=== PATIENT | male | born 1935 | race Caucasian/White ===

== ENCOUNTER 2016-10-16 15:58 | Inpatient (IN) | payer MEDICARE, OTHER ==
[~2016-10-16] VITALS: Ht 170.2 cm; Wt 91.6 kg
[~2016-10-16 15:58] MED LIST: AZILECT1 MG PO; COLESTID 1GM1 G PO; CORDARONE200 MG/TAB PO; FERROUSAL325 MG PO; FLOMAX 0.40.4 MG/CAP PO; GLUCOPHAGE1000 MG PO; LIALDA 1.2 GM1.2 GM PO; LOPID 600M600 MG/TAB PO; NITROSTAT0.4 MG/TAB SL; PRILOSEC 20MG20 MG PO; SINEMET-25/251 UDTAB PO; ZANTAC 300300 MG PO; ZESTRIL 5MG5 MG PO
[2016-10-16 18:20] VITALS: PULSE 83; TEMP 97.5
[2016-10-16 22:31] VITALS: BP 95/67; PULSE 88; TEMP 98.8
[2016-10-17] MEDS ORDERED: TYLENOL 500MG500 MG PO (01:05)
[2016-10-17] MEDS ORDERED: ASPIRIN 81M81 MG/TA2 PO (01:09)
[2016-10-17] MEDS ORDERED: LOPRESSOR 225 MG/TAB PO (01:13)
[2016-10-17] MEDS ORDERED: NAMENDA5 MG PO (01:14)
[2016-10-17] MEDS ORDERED: TESSALON P100 MG/CAP PO (01:59)
[2016-10-17] MEDS ORDERED: ATIVAN 0.50.5 MG/TAB PO (02:00)
[2016-10-17 03:03] VITALS: BP 147/57; PULSE 85; TEMP 97.6
[2016-10-17 03:50] LABS: BASO % 0.4 % (0.0-2.0); EOS % 0.2 % (0-4.0); LYMPH % 11.2 % (20.0-51.0); MEAN CELL VOLUME 84 fl (80.0-100.0); MEAN CORPUSCULAR HGB CONC 32 g/dl (33.0-37.0); MEAN PLATELET VOLUME 9.5 fl (7.4-10.4); MONO # 0.5 (0.1-0.6); MONO % 5.3 % (1.7-9.3); PLATELET COUNT 278 K/mm3 (130-400); RED BLOOD COUNT 3.82 M/mm3 (4.20-5.60); REDCELL DISTRIBUTION WIDTH-CV 15.3 % (11.5-14.5); WHITE BLOOD COUNT 8.5 K/mm3 (4.8-10.8)
[2016-10-17 04:01] LABS: ANION GAP 17 mmol/L (7-16); BLOOD UREA NITROGEN 51 mg/dL (9-20); CALCIUM 8.5 mg/dL (8.4-10.2); CARBON DIOXIDE 18 mmol/L (22-30); CHLORIDE 100 mmol/L (98-107); GLUCOSE 63 mg/dL (74-106); POTASSIUM 3.7 mmol/L (3.4-5.0); SODIUM 135 mmol/L (137-145)
[2016-10-17 04:03] LABS: HEMOGLOBIN 10.3 g/dl (13.5-18.0); MEAN CORPUSCULAR HEMOGLOBIN 27 pg (27.0-31.0)
[2016-10-17 04:52] LABS: TROPONIN-I < 0.012 ng/mL (0.000-0.034)
[2016-10-17 07:43] VITALS: BP 119/54; PULSE 91; TEMP 98.2
[2016-10-17 11:25] VITALS: BP 120/43; PULSE 93; TEMP 98.6
[2016-10-17 11:41] LABS: PH 5 (5-8); SQUAMOUS EPITHELIAL 0-2 /hpf; URINE APPEARANCE Clear; URINE BACTERIA Rare /hpf; URINE BILIRUBIN Negative (NEGATIVE); URINE BLOOD 2+ (NEGATIVE); URINE COLOR Straw; URINE GLUCOSE Negative (NEGATIVE); URINE KETONE Negative (NEGATIVE); URINE UROBILINOGEN Negative (NEGATIVE); URINE WBC 0-2 /hpf
[2016-10-17 15:58] VITALS: BP 104/58; PULSE 94; TEMP 98.8
[2016-10-17 18:54] VITALS: BP 121/65; PULSE 89; TEMP 97.4
[2016-10-17 23:43] VITALS: BP 97/62; PULSE 93; TEMP 98.5
[2016-10-18 03:22] VITALS: BP 135/69; PULSE 95; TEMP 98.1
[2016-10-18 07:51] VITALS: BP 115/63; PULSE 97; TEMP 98.1
[2016-10-18 11:40] LABS: CALCIUM 8.2 mg/dL (8.4-10.2); MAGNESIUM 1.4 mg/dL (1.6-2.3)
[2016-10-18 11:50] LABS: POTASSIUM 2.8 mmol/L (3.4-5.0)
[2016-10-18 12:00] VITALS: BP 118/58; PULSE 95; TEMP 97.9
[2016-10-18 13:31] LABS: ARTERIAL BLD GAS O2 SATURATION 93.9 % (92-100); ARTERIAL BLOOD GAS BASE EXCESS -0.2 (-2-2); ARTERIAL BLOOD GAS PHT 7.47 C (7.35-7.45); ARTERIAL BLOOD GAS PO2 71.5 mmHg (80-100); ARTERIAL BLOOD GAS PO2T 71.5 (80-100); ARTERIAL BLOOD GAS pH 7.47 (7.35-7.45); OXYHEMOGLOBIN 92.8 %
[2016-10-18 13:33] LABS: ALLEN TEST YES; ALLENS TEST RESULT PASS; ATS? YES
[2016-10-18 15:34] VITALS: BP 130/61; PULSE 92; TEMP 98.3
[2016-10-18 20:06] VITALS: BP 125/67; PULSE 95; TEMP 98
[2016-10-18 23:57] VITALS: BP 120/62; PULSE 94; TEMP 97.8
[2016-10-19 03:55] VITALS: BP 107/49; PULSE 96; TEMP 98.2
[2016-10-19 07:34] VITALS: BP 104/52; PULSE 96; TEMP 98.2
[2016-10-19 12:00] VITALS: BP 101/62; PULSE 90; TEMP 97.6
[2016-10-19] MEDS ORDERED: LASIX 20MG TABL20 MG PO ×2 (12:04→12:22)
[2016-10-19 12:22] VITALS: BP 104/52; PULSE 96; TEMP 98.2
[2016-10-19] MEDS ORDERED: K-DUR 10 MEQ T10 MEQ PO (12:22)
== END 2016-10-19 14:58 | DRG 292 ==
LOC: MEDICAL 15:58
PROVIDERS: Family Medicine; Internal Medicine
DX: I50.23 Acute on chronic systolic (congestive) heart failure (principal); N18.4 Chronic kidney disease, stage 4 (severe); K50.90 Crohn's disease, unspecified, without complications; Z95.1 Presence of aortocoronary bypass graft; Z66 Do not resuscitate; Z95.0 Presence of cardiac pacemaker; G20 Parkinson's disease; F02.80 Dementia in other diseases classified elsewhere, unspecified severity, without behavioral disturbance, psychotic disturbance, mood disturbance, and anxiety; E11.21 Type 2 diabetes mellitus with diabetic nephropathy; I48.0 Paroxysmal atrial fibrillation; Z87.891 Personal history of nicotine dependence; I87.2 Venous insufficiency (chronic) (peripheral); I08.1 Rheumatic disorders of both mitral and tricuspid valves
CPT/HCPCS: 99223-AI; 99232-AI; 99233-AI; 99239; J1644

== ENCOUNTER 2016-10-24 13:56 | Inpatient (IN) | payer MEDICARE, OTHER ==
[2016-10-24] VITALS (334 sets, daily range): BP systolic 89–95; BP diastolic 58–63; PULSE 92–97; TEMP 97.5–98; O2SAT 74–100
[~2016-10-24] VITALS: Ht 170.2 cm; Wt 65.1 kg
[~2016-10-24 13:56] MED LIST changes: +ASPIRIN 81M81 MG/TA2 PO; +ATIVAN 0.50.5 MG/TAB PO; +K-DUR 10 MEQ T10 MEQ PO; +LASIX 20MG TABL20 MG PO; +LOPRESSOR 225 MG/TAB PO; +NAMENDA5 MG PO; +TESSALON P100 MG/CAP PO; +TYLENOL 500MG500 MG PO
[2016-10-24] MEDS ORDERED: ZANTAC 150MG T150 MG PO (16:04)
[2016-10-24] MEDS ORDERED: SINEMET 25/101 UDTAB PO (16:05)
[2016-10-24] MEDS ORDERED: TESSALON P100 MG/CAP PO (16:17)
[2016-10-25] VITALS (303 sets, daily range): BP systolic 90–108; BP diastolic 52–85; PULSE 91–94; TEMP 97.7–98.7; O2SAT 87–100
[2016-10-25 05:59] LABS: PH 5 (5-8); SQUAMOUS EPITHELIAL None Seen /hpf; URINE APPEARANCE Hazy; URINE BACTERIA Rare /hpf; URINE BILIRUBIN Negative (NEGATIVE); URINE BLOOD 2+ (NEGATIVE); URINE COLOR Yellow; URINE GLUCOSE Negative (NEGATIVE); URINE KETONE Negative (NEGATIVE); URINE UROBILINOGEN Negative (NEGATIVE); URINE WBC 0-2 /hpf
[2016-10-25 10:19] LABS: MEAN CELL VOLUME 81 fl (80.0-100.0); MEAN CORPUSCULAR HGB CONC 33 g/dl (33.0-37.0); MEAN PLATELET VOLUME 10.3 fl (7.4-10.4); PLATELET COUNT 235 K/mm3 (130-400); RED BLOOD COUNT 3.48 M/mm3 (4.20-5.60); REDCELL DISTRIBUTION WIDTH-CV 14.6 % (11.5-14.5); WHITE BLOOD COUNT 12.5 K/mm3 (4.8-10.8)
[2016-10-25 10:20] LABS: HEMATOCRIT 28.2 % (42.0-52.0); HEMOGLOBIN 9.3 g/dl (13.5-18.0); MEAN CORPUSCULAR HEMOGLOBIN 27 pg (27.0-31.0)
[2016-10-25 10:21] LABS: ADD PATHOLOGY DIFF REVIEW NO
[2016-10-25 10:24] LABS: ALBUMIN 2.6 gm/dL (3.5-5.0); CALCIUM 8.4 mg/dL (8.4-10.2); CREATININE, serum 1.89 mg/dL (0.66-1.25); PHOSPHOROUS 4.3 mg/dL (2.5-4.5); POTASSIUM 3.8 mmol/L (3.4-5.0)
[2016-10-25 12:48] LABS: ANISOCYTOSIS 1+; BAND 11 % (0-10); HYPOCHROMIA 2+; MICROCYTOSIS 1+; NEUTROPHILS 76 % (42.0-75.2); PLATELET ESTIMATE NORMAL (NORMAL); TOTAL CELLS COUNTED 100
[2016-10-26 00:39] VITALS: BP 106/63; PULSE 70; TEMP 98.1
[2016-10-26 05:10] VITALS: BP 111/74; PULSE 95; TEMP 98.4
[2016-10-26 07:26] LABS: MEAN CELL VOLUME 81 fl (80.0-100.0); MEAN CORPUSCULAR HGB CONC 32 g/dl (33.0-37.0); MEAN PLATELET VOLUME 10.2 fl (7.4-10.4); PLATELET COUNT 270 K/mm3 (130-400); RED BLOOD COUNT 3.72 M/mm3 (4.20-5.60); REDCELL DISTRIBUTION WIDTH-CV 14.6 % (11.5-14.5)
[2016-10-26 07:39] LABS: ALBUMIN 2.9 gm/dL (3.5-5.0); CALCIUM 8.6 mg/dL (8.4-10.2); CREATININE, serum 1.94 mg/dL (0.66-1.25); PHOSPHOROUS 3.9 mg/dL (2.5-4.5); POTASSIUM 3.7 mmol/L (3.4-5.0)
[2016-10-26 07:41] LABS: HEMATOCRIT 30.1 % (42.0-52.0); HEMOGLOBIN 9.7 g/dl (13.5-18.0); MEAN CORPUSCULAR HEMOGLOBIN 26 pg (27.0-31.0)
[2016-10-26 07:42] LABS: ADD PATHOLOGY DIFF REVIEW NO
[2016-10-26 07:56] VITALS: BP 112/54; PULSE 95; TEMP 97.9
[2016-10-26 09:48] LABS: INR 1.5 (0.8-3.0); PROTHROMBIN TIME 17.2 SECONDS (9.7-12.8)
[2016-10-26 09:51] LABS: PARTIAL THROMBOPLASTIN TIME 36.6 SECONDS (26.0-37.0)
[2016-10-26 11:03] VITALS: BP 108/53; PULSE 98; TEMP 98
[2016-10-26 11:45] LABS: PLEURAL FLUID - PMN 76.3 % (0-25)
[2016-10-26 12:03] LABS: GLUCOSE,PLEURAL FLUID 79 mg/dL
[2016-10-26 16:00] LABS: PLEURAL FLUID RIGHT SIDE; PLEURAL FLUID APPEARANCE HAZY; PLEURAL FLUID COLOR YELLOW
[2016-10-26 16:06] VITALS: BP 111/51; PULSE 97; TEMP 98
[2016-10-26 16:10] LABS: BAND 10 % (0-10); NEUTROPHILS 68 % (42.0-75.2); TOTAL CELLS COUNTED 100
[2016-10-26 16:12] LABS: PLATELET ESTIMATE NORMAL (NORMAL)
[2016-10-26 16:13] LABS: ANISOCYTOSIS 1+; HYPOCHROMIA 1+
[2016-10-26 20:28] VITALS: BP 103/64; PULSE 97; TEMP 98.6
[2016-10-27 00:35] VITALS: BP 121/63; PULSE 97; TEMP 98.3
[2016-10-27 06:33] VITALS: BP 124/75; PULSE 85; TEMP 98.2
[2016-10-27 07:24] LABS: MEAN CELL VOLUME 82 fl (80.0-100.0); MEAN CORPUSCULAR HGB CONC 32 g/dl (33.0-37.0); MEAN PLATELET VOLUME 10.4 fl (7.4-10.4); PLATELET COUNT 283 K/mm3 (130-400); RED BLOOD COUNT 3.76 M/mm3 (4.20-5.60); REDCELL DISTRIBUTION WIDTH-CV 14.7 % (11.5-14.5); WHITE BLOOD COUNT 10.3 K/mm3 (4.8-10.8)
[2016-10-27 07:49] LABS: ADD PATHOLOGY DIFF REVIEW NO; HEMATOCRIT 30.8 % (42.0-52.0); HEMOGLOBIN 9.9 g/dl (13.5-18.0); MEAN CORPUSCULAR HEMOGLOBIN 26 pg (27.0-31.0)
[2016-10-27 07:52] LABS: ALBUMIN 2.8 gm/dL (3.5-5.0); CALCIUM 8.7 mg/dL (8.4-10.2); CREATININE, serum 1.7 mg/dL (0.66-1.25); PHOSPHOROUS 3.1 mg/dL (2.5-4.5); POTASSIUM 3.4 mmol/L (3.4-5.0)
[2016-10-27 09:17] VITALS: BP 122/65; PULSE 99; TEMP 98.9
[2016-10-27 12:09] LABS: BAND 15 % (0-10); NEUTROPHILS 69 % (42.0-75.2); TOTAL CELLS COUNTED 100
[2016-10-27 12:10] LABS: ANISOCYTOSIS 1+; HYPOCHROMIA 1+; MICROCYTOSIS 1+; PLATELET ESTIMATE NORMAL (NORMAL)
[2016-10-27 13:10] VITALS: BP 106/60; PULSE 78; TEMP 98.3
[2016-10-27 16:00] VITALS: BP 115/66; PULSE 42; TEMP 96.7
[2016-10-27 23:22] VITALS: BP 119/65; PULSE 70; TEMP 97.4
[2016-10-28 02:36] VITALS: BP 107/70; PULSE 98; TEMP 98.7
[2016-10-28 06:55] LABS: MEAN CELL VOLUME 82 fl (80.0-100.0); MEAN CORPUSCULAR HGB CONC 32 g/dl (33.0-37.0); MEAN PLATELET VOLUME 9.7 fl (7.4-10.4); PLATELET COUNT 274 K/mm3 (130-400); REDCELL DISTRIBUTION WIDTH-CV 14.7 % (11.5-14.5); WHITE BLOOD COUNT 8.8 K/mm3 (4.8-10.8)
[2016-10-28 07:02] LABS: HEMATOCRIT 31.8 % (42.0-52.0); HEMOGLOBIN 10.3 g/dl (13.5-18.0); MEAN CORPUSCULAR HEMOGLOBIN 26 pg (27.0-31.0)
[2016-10-28 07:03] LABS: ADD PATHOLOGY DIFF REVIEW NO
[2016-10-28 07:16] LABS: CALCIUM 8.7 mg/dL (8.4-10.2); CREATININE, serum 1.49 mg/dL (0.66-1.25); POTASSIUM 3.1 mmol/L (3.4-5.0)
[2016-10-28 07:35] VITALS: BP 123/70; PULSE 99; TEMP 98.8
[2016-10-28 10:28] LABS: ANISOCYTOSIS 1+; BAND 13 % (0-10); NEUTROPHILS 67 % (42.0-75.2); PLATELET ESTIMATE NORMAL (NORMAL); TOTAL CELLS COUNTED 100
[2016-10-28 13:03] VITALS: BP 104/58; PULSE 98; TEMP 97.5
[2016-10-28 15:56] VITALS: BP 112/68; PULSE 97; TEMP 97.6
[2016-10-28 19:39] VITALS: BP 120/69; PULSE 99; TEMP 97.8
[2016-10-28 23:59] VITALS: BP 120/63; PULSE 100; TEMP 98.2
[2016-10-29] VITALS (16 sets, daily range): BP systolic 94–124; BP diastolic 57–70; PULSE 69–102; TEMP 98.3–98.7
[2016-10-29 08:04] LABS: CALCIUM 8.9 mg/dL (8.4-10.2); CREATININE, serum 1.44 mg/dL (0.66-1.25); POTASSIUM 3.3 mmol/L (3.4-5.0)
[2016-10-30 01:05] VITALS: BP 113/52; PULSE 99; TEMP 98.5
[2016-10-30 03:53] VITALS: BP 113/75; PULSE 83; TEMP 98.5
[2016-10-30 07:27] VITALS: BP 105/61; PULSE 102; TEMP 98.3
[2016-10-30 11:30] VITALS: BP 114/66; PULSE 101; TEMP 97.6
[2016-10-30 14:17] LABS: CALCIUM 8.7 mg/dL (8.4-10.2); CREATININE, serum 1.39 mg/dL (0.66-1.25); POTASSIUM 3.3 mmol/L (3.4-5.0)
[2016-10-30 15:52] VITALS: BP 103/63; PULSE 95; TEMP 97.3
[2016-10-30 21:23] VITALS: BP 117/85; PULSE 77; TEMP 98.4
[2016-10-31] VITALS (7 sets, daily range): BP systolic 94–122; BP diastolic 52–77; PULSE 98–103; TEMP 97.6–98.9
[2016-11-01 00:34] VITALS: BP 107/63; PULSE 100; TEMP 98
[2016-11-01 03:55] VITALS: BP 106/70; PULSE 102; TEMP 97.8
[2016-11-01 08:36] VITALS: BP 116/60; PULSE 107; TEMP 97.6
[2016-11-01] MEDS ORDERED: ROCEPHIN 2GM VIAL21 IV (13:11)
[2016-11-01] MEDS ORDERED: HEPARIN LOCK FLU5 M1 IV (13:13)
[2016-11-01] MEDS ORDERED: AMPICILLIN 22 G/VIAL IV (13:13)
[2016-11-01] MEDS ORDERED: TYLENOL 500MG500 MG PO (13:15)
[2016-11-01] MEDS ORDERED: NS INT FLUSH 1010 ML IV (13:21)
[2016-11-01] MEDS ORDERED: ATIVAN 0.50.5 MG/TAB PO (13:21)
[2016-11-01] MEDS ORDERED: COREG 3.123.125 MG/T PO (13:43)
[2016-11-01] MEDS ORDERED: LASIX 40MG TABL40 MG PO (13:44)
[2016-11-01] MEDS ORDERED: ALDACTONE 25MG25 M1 PO (13:44)
[2016-11-01 13:46] VITALS: BP 116/60; PULSE 107; TEMP 97.6
== END 2016-11-01 14:25 | DRG 871 ==
LOC: IMCU 13:56 → MEDICAL 10-25 11:01
PROVIDERS: Family Medicine; Internal Medicine Cardiovascular Disease; Internal Medicine Interventional Cardiology; Internal Medicine Nephrology; Internal Medicine Pulmonary Disease
PROC: 0W993ZX Drainage of Right Pleural Cavity, Percutaneous Approach, Diagnostic (ICD-10-PCS; principal; 2016-10-26)
DX: A41.81 Sepsis due to Enterococcus (principal); I26.90 Septic pulmonary embolism without acute cor pulmonale; I33.0 Acute and subacute infective endocarditis; I50.23 Acute on chronic systolic (congestive) heart failure; K50.90 Crohn's disease, unspecified, without complications; Z66 Do not resuscitate; N18.4 Chronic kidney disease, stage 4 (severe); E87.1 Hypo-osmolality and hyponatremia; B95.2 Enterococcus as the cause of diseases classified elsewhere; I08.3 Combined rheumatic disorders of mitral, aortic and tricuspid valves; G20 Parkinson's disease; F02.80 Dementia in other diseases classified elsewhere, unspecified severity, without behavioral disturbance, psychotic disturbance, mood disturbance, and anxiety; E11.21 Type 2 diabetes mellitus with diabetic nephropathy; I48.0 Paroxysmal atrial fibrillation; Z87.891 Personal history of nicotine dependence; E87.6 Hypokalemia
CPT/HCPCS: 99232-AI; 99233-AI; C1751; C1894; J0290; J0696; J1644; J1940; J2250; J3010; J3370; J7050

== ENCOUNTER → 2016-11-21 | Outpatient (REF) ==
[~2016-11-21] MED LIST changes: +ALDACTONE 25MG25 M1 PO; +AMPICILLIN 22 G/VIAL IV; +COREG 3.123.125 MG/T PO; +HEPARIN LOCK FLU5 M1 IV; +LASIX 40MG TABL40 MG PO; +NS INT FLUSH 1010 ML IV; +ROCEPHIN 2GM VIAL21 IV; +SINEMET 25/101 UDTAB PO; +ZANTAC 150MG T150 MG PO
== END ==
LOC: ZAIV 06:10
DX: Z01.89 Encounter for other specified special examinations (principal)

== ENCOUNTER → 2016-12-25 | Outpatient (REF) | LOC: ZAIV 06:10 | DX: Z01.89 Encounter for other specified special examinations (principal) ==